=== PATIENT | female | born 1945 | race Caucasian/White ===

== ENCOUNTER 2019-12-13 22:32 | Inpatient (IN) | payer MEDICARE, OTHER ==
[~2019-12-13] VITALS: Ht 165.1 cm; Wt 68.0 kg
--- NOTE | 2019-12-13 22:50 | NUR ---
PT SUZANNE FROM [facility] ON 5150HOLD DTO/GD; REFUSING TO SHOWER, AGGRESSIVE TO STAFF PER REPORT. PT AAOX4, CALM AND COOPERATIVE, RESPIRATIONS EVEN AND UNLABORED ON RA W/ NAD NOTED. PT CHANGED INTO GOWN, BELONGINGS PLACED TO LOCKER. SITTER AT BEDSIDE FOR SAFETY.
--- NOTE | 2019-12-13 23:00 | NUR ---
FLEXOGRAPHIC PRESS OPERATOR AT BEDSIDE FOR BLOOD DRAW
[2019-12-13] MEDS ORDERED: ESCI5TAB PO (23:04)
[2019-12-13] MEDS ORDERED: AMLO5TAB9 PO (23:04)
[2019-12-13] MEDS ORDERED: OLAN10TA3 PO (23:04)
[2019-12-13] MEDS ORDERED: MONT10TA22 PO (23:04)
[2019-12-13] MEDS ORDERED: TRAZ-182 PO (23:04)
[2019-12-13] MEDS ORDERED: CELE200C PO (23:04)
--- NOTE | 2019-12-13 23:06 | NUR ---
COVID SWAB SENT TO LAB
[2019-12-13 23:10] LABS: BASOPHILS % (AUTO) 0.6 % (0.0-2.0); EOSINOPHILS % (AUTO) 3.7 % (0.0-6.0); HEMATOCRIT 32 % (33-45); HEMOGLOBIN 10.8 g/dL (11.5-14.8); LYMPHOCYTES # (AUTO) 0.9 /CMM (0.8-4.8); LYMPHOCYTES % (AUTO) 13.5 % (20.0-44.0); MEAN CORPUSCULAR HGB CONC 34 g/dl (31.0-36.0); MEAN CORPUSCULAR VOLUME 95 fL (82-100); MONOCYTES # (AUTO) 0.7 /CMM (0.1-1.30); MONOCYTES % (AUTO) 10.8 % (2.0-12.0); NEUTROPHILS # (AUTO) 4.8 /CMM (1.8-8.9); NEUTROPHILS % (AUTO) 71.4 % (43.0-81.0); PLATELET COUNT (AUTO) 231 /CMM (150-450); WHITE BLOOD COUNT (AUTO) 6.7 K/uL (4.3-11.0)
[2019-12-13 23:39] LABS: ACETAMINOPHEN 14 ug/ml (10-30); ALANINE AMINOTRANSFERASE 11 U/L (12-78); ALBUMIN 2.5 g/dL (3.4-5.0); ALCOHOL, BLOOD < 3 mg/dL (0-0); ALKALINE PHOSPHATASE 101 U/L (46-116); ASPARTATE AMINOTRANSFERASE 14 U/L (15-37); BILIRUBIN,DIRECT 0.1 mg/dL (0.0-0.2); BILIRUBIN,TOTAL 0.2 mg/dL (0.2-1.0); CALCIUM, SERUM 8.1 mg/dL (8.5-10.1); CARBON DIOXIDE 31 mmol/L (21-32); CHLORIDE 101 mmol/L (98-107); CREATININE 1.1 mg/dL (0.6-1.3); GLUCOSE 101 mg/dL (74-106); POTASSIUM 3.3 mmol/L (3.5-5.1); SALICYLATE 1.1 mg/dL (2.8-20.0); SODIUM SERUM 139 mmol/L (136-145); TOTAL PROTEIN, SERUM 5.7 g/dL (6.4-8.2); UREA NITROGEN, BLOOD 15 mg/dL (7-18)
--- NOTE | 2019-12-14 02:06 | NUR ---
ADMISSION NOTE: RECEIVED PT. FROM ER, ORIGINALLY [facility]. ARRIVED IN THIS UNIT AT 0206 VIA GURNEY WITH 1 ER STAFF. ADMITTED ON A 5150 HOLD FOR DTO, GD. PER HOLD PT. BECAME AGGRESSIVE WITH STAFF, PUSHING THEM TO WALL AND REFUSING TO SHOWER IN MONTHS. THE 5150 WAS REVIEWED AND THE DOCUMENTATION IN THE 5150 HOLD APPEARS TO REFLECT THE PRESENTATION OF PT. UPON FACE TO FACE ASSESSMENT, PT. IS NOTED TO BEING UNCOOPERATIVE, DISHEVELED, POOR HYGIENE. PT. IS CURRENTLY SLEEPING IN BED. NO S/S OF PAIN OR DISTRESS. A/O X2-3 ON RA. NO NEEDS AT THIS TIME. DENIES SI/HI. REFUSED TO SIGN ANY PAPER WORK. ADVISED OF HOLD AND PT. RIGHTS BOOKLET GIVEN. UNDER PSYCHIATRIC CARE OF DR. REYES AND MEDICAL CARE OF ADAN. BELONGINGS WERE INVENTORIED AND CHECKED FOR CONTRABAND. SKIN ASSESSMENT COMPLETED. EDUCATED ON USE OF CALL HOBBS. SIDE RAILS UP X2 FOR SAFETY. LOCKED POSITION, LOW. WILL CONTINUE TO MONITOR FOR SAFETY AND BEHAVIOR.
[2019-12-14] MEDS ORDERED: clonazePAM 0.5 MG TABLET PO SCH (02:30)
[2019-12-14] MEDS ORDERED: MAGNESIUM HYDROXIDE 30 ML UDC PO PRN (02:30)
[2019-12-14] MEDS ORDERED: MAG HYDROX/AL HYDROX/SIMETH 30 ML UDC PO PRN (02:30)
[2019-12-14] MEDS ORDERED: ACETAMINOPHEN 325 MG TABLET PO PRN (02:30)
[2019-12-14] MEDS ORDERED: BLOOD SUGAR DIAGNOSTIC 1 EACH STRIP IN ONE (03:00)
[2019-12-14 03:59] VITALS: BP 134/70
[2019-12-14] MEDS: CELECOXIB 100 MG CAPSULE PO SCH ×2 (08:25→21:17)
[2019-12-14] MEDS: AMLODIPINE BESYLATE 5 MG TABLET PO SCH (08:26)
[2019-12-14 08:37] VITALS: BP 143/81
--- NOTE | 2019-12-14 10:09 | NUR ---
SW Family Contact: This food writer contacted patient's daughter Vicenta ([phone]) to discuss discharge and treatment plan and would want pt back to [facility].
--- NOTE | 2019-12-14 10:09 | NUR ---
SW Initial Discharge Plan: Patient currently resides at [facility] [address] [place] [address]; ([phone]). This lead technical writer contacted Admin León ([phone]) to discuss if pt is welcomed back upon discharge, per León, he will notify this lead technical writer. This lead technical writer contacted patient's daughter Vicenta ([phone]) to discuss discharge and treatment plan and would want pt back to [facility]. This lead technical writer will work with the MD, treatment team, and family to help coordinate proper discharge.
[2019-12-14] MEDS: ESCITALOPRAM OXALATE (10 MG) 10 MG TABLET PO SCH (12:21)
[2019-12-14 16:00] VITALS: BP 125/81
--- NOTE | 2019-12-14 16:18 | NUR ---
gps rn note: patient uncooperative easily agitated refused skin assessment refused to take a shower,refused to collect urine specimen. Dr wick aware no new orders will indorse to po rn
[2019-12-14] MEDS: MONTELUKAST SODIUM (10MG) 10 MG TABLET PO SCH (17:20)
--- NOTE | 2019-12-14 19:30 | NUR ---
RN NOTES: RECEIVED PT IN THE ROOM RESTING IN BED AWAKE ALERT, DISHELVED ,PARANOID,DELUSIONAL , POOR HYGINE, CONFUSED ,BLUNT FLAT AFFECT NO S/S DISTRESS NOTED PT UNCOOPERATIVE REFUSED TO COLLECT URINE SPECIMEN AT THIS TIME AND REFUSED SKIN ASSESSMENT AT THIS TIME, DENIES SI/HI AMBULATORY STEADY GAIT, PT. JUDGEMENT IS IMPARIED AND IMPULSE CONTROL IS POOR PATIENT REFUSED SHOWER ATT HIS TIME ,WILL CONTINUE MONITORING FOR Q 15 MIN SAFETY AND BEHAVIOR.
[2019-12-14 19:54] VITALS: BP 143/77
--- NOTE | 2019-12-14 20:24 | NUR ---
RN NOTES: REFUSES SKIN ASSESSMENT PT. REFUSED A THOROUGHLY FULL BODY SKIN ASSESSMENT , PER PT. I DONT NEED TO CHECK MY SKIN , ENCOURAGED X3 RISKS JIE EXPLINED ,PT. STRONGLY REFUSED , PT. BEHAVIOR VERY UNCCOERTIVE , PARANOID, EASILY AGITATED , WILL CONTINUITY WITH CARE .
[2019-12-14] MEDS ORDERED: OLANZAPINE 10 MG TABLET PO SCH (22:00)
--- NOTE | 2019-12-14 22:00 | NUR ---
RN NOTES: VIRGINIA ARELLANO JIG FILLER IN THE UNIT , MADE AWARE OF PATIENT RIGHT /LEFT BREAST SKIN PROBLEMS, AND VIRGINIA ARELLANO ORDES WOUND CONSULTS, AND PER HER STATES FOLLOW UP WITH DAY TIME / MORNING MD. WILL CONTINUITY WITH CARE.
[2019-12-14] MEDS: TRAZODONE 50 MG TABLET PO SCH (22:06)
--- NOTE | 2019-12-15 05:18 | NUR ---
RN NOTES: REFUSES SKIN ASSESSMENT PT. REFUSED A THOROUGHLY FULL BODY SKIN ASSESSMENT AND REFUSED TO TAKE SHOWER AND REFUSED TO TAKE OFF DIRTY UNDERGARMENTS , ENCOURAGED X3 RISKS JIE EXPLINED ,PT. STRONGLY REFUSED , PT. BEHAVIOR VERY UNCOOPERATIVE , PARANOID, EASILY AGITATED , WILL CONTINUITY WITH CARE .
--- NOTE | 2019-12-15 05:28 | NUR ---
RN NOTES: REFUSED URINE SPECIMEN PT. REFUSED TO GIVE URINE SPECIMEN , PT. STATES I GIVE URINE SPECIMEN WHEN I CAME ENCOURAGED X3 RISKS JIE EXPLINED ,PT. STRONGLY REFUSED , PT. BEHAVIOR VERY UNCOOPERATIVE , PARANOID, EASILY AGITATED , WILL CONTINUITY WITH CARE .
[2019-12-15 07:02] LABS: CALCIUM, SERUM 8.5 mg/dL (8.5-10.1); CREATININE 0.9 mg/dL (0.6-1.3); POTASSIUM 3.8 mmol/L (3.5-5.1)
[2019-12-15 07:12] LABS: CHOLESTEROL 218 mg/dL (<200); HDL CHOLESTEROL 69 mg/dL (40-60); LDL 131 mg/dL (0-99); TRIGLYCERIDES 101 mg/dL (30-150)
[2019-12-15 08:00] VITALS: BP 143/80
[2019-12-15] MEDS: AMLODIPINE BESYLATE 5 MG TABLET PO SCH (08:00)
[2019-12-15] MEDS: ESCITALOPRAM OXALATE (10 MG) 10 MG TABLET PO SCH (08:00)
[2019-12-15] MEDS: CELECOXIB 100 MG CAPSULE PO SCH ×2 (08:00→20:10)
--- NOTE | 2019-12-15 09:46 | NUR ---
WOUND CARE CONSULT: LIMITED ASSESSMENT DUE TO PT ONLY ALLOWED ASSESSMENT OF BREAST AREA. RT BREASTFOLD NOTED TO HAVE OPEN SKIN AND SEVERE RASH. RASH EXTENDS TO LEFT BREAST WELL. RECOMMEND SURGICAL CONSULT. DR ARANGO NOTIFIED OF CONSULT REQUEST. CURRENT SALVATORE SCORE IS 21. Addendum: 12/15/19 at 0948 by DANTE KEARNEY WNDNU Amended: Links added.
--- NOTE | 2019-12-15 10:11 | NUR ---
SW Family Contact: This ticket writer contacted patient's daughter Vicenta ([phone]) and she reported that pt was residing with her for 15 years and then she was transferred to [facility]. Per daughter Vicenta, pt has been neglecting her a self-care at home and was refusing to shower. Vicenta reported pt was also refusing self-care at [facility] and this was one of the main concerns why she was brought to the hospital.
[2019-12-15] MEDS: CLOTRIMAZOLE 1% 15 GM TUBE TP SCH ×2 (13:40→17:00)
[2019-12-15 16:00] VITALS: BP 141/71
[2019-12-15] MEDS: MONTELUKAST SODIUM (10MG) 10 MG TABLET PO SCH (18:06)
[2019-12-15 20:31] VITALS: BP 138/82
--- NOTE | 2019-12-15 20:48 | NUR ---
RN NOTES: REFUSED URINE SPECIMEN PT. REFUSED TO PROVIDE URINE SPECIMEN , PT. STATES I GIVE URINE SPECIMEN WHEN I CAME HERE NOW I AM NOT GIVE ANY MORE URINE SPECIMEN , ENCOURAGED X3 RISKS JIE EXPLINED ,PT. STRONGLY REFUSED , PT. BEHAVIOR VERY UNCOOPERATIVE , PARANOID, EASILY AGITATED , WILL CONTINUITY WITH CARE.
--- NOTE | 2019-12-15 20:50 | NUR ---
RN NOTES : REFUSED HYGINE OFFERD PT. TO SHOWER AND BED BATH ,PER PT. I AM CLEANING MY SELF ,ENCOURAGED AND MOTIVATED FOR SHOWER AND BED BATH , PT. REFUSED TO DCS ENGINEER , PER PT. I TOLD YOU ALREADY , I NO NEED , WILL CONTINUITY WITH CARE.
[2019-12-15] MEDS: OLANZAPINE 10 MG TABLET PO SCH (21:08)
[2019-12-15] MEDS: TRAZODONE 50 MG TABLET PO SCH (21:08)
--- NOTE | 2019-12-15 22:25 | NUR ---
RN NOTES : RECEVEID PHONE CALL FROM [facility], ABOUT PT. RESULTS MRSA NARES POSITIVE , PLACED CALL [facility], AND NOTIFIED MARKETING SERVICES VICE PRESIDENT VIRGINIA BLEVINS ON MY FINDING , NEW ODADRIANO RECIVED FOR BACTROBAN OINTMENT 2% 1 GM NS Q 12HR, AND PT. KEEP IN ISOLATION, NEW NUBIA RECEIVED AN CARRIED OUT.WILL CONTINUITY WITH CARE.
--- NOTE | 2019-12-16 06:20 | NUR ---
RN NOTES : PT.WAS MED COMPLIANT , BUT PT.REFUSED SHOWER / BED BATH ,POOR HYGINE , REFUSED TO GIVE URINE SPECIMEN , REFUSED SKIN REASSESSMENT, ENCOURAGED RISKS BENFITS EXPLINED STRONGLY REFUSED, AND PT. BEHAVIOR EASILY AGIATED UNCOOPERTIVE ,DISHELVED NO ACUTE DISTRESS NOTED, NO CHANGE OF CONDTION NOTED, WILL CONTINUITY WITH CARE.
[2019-12-16 08:00] VITALS: BP 148/78
[2019-12-16] MEDS: ESCITALOPRAM OXALATE (10 MG) 10 MG TABLET PO SCH (08:05)
[2019-12-16] MEDS: AMLODIPINE BESYLATE 5 MG TABLET PO SCH (08:06)
[2019-12-16] MEDS: CLOTRIMAZOLE 1% 15 GM TUBE TP SCH ×2 (08:06→16:17)
[2019-12-16] MEDS: CELECOXIB 100 MG CAPSULE PO SCH ×2 (08:06→21:46)
[2019-12-16] MEDS: MUPIROCIN OINT 2% 22 GM TUBE NS SCH ×2 (08:51→21:45)
--- NOTE | 2019-12-16 13:49 | NUR ---
GPS RN NOTE: WOUND CARE DONE PER ORDER PT TOLERATED WILL CONTINUE TO REFUSED TO TAKE A SHOWER/ BED BATH EXPLAIN IMPORTANCE OF HYGIENE PATIENT CONTINUE TO STRONGLY TO REFUSED. REFUSED TO GIVE URINE SPECIMEN PT EASILY AGITATED UNCOOPERATIVE , DISHEVELED , WILL CONTINUITY WITH CARE.
[2019-12-16 16:00] VITALS: BP 149/85
[2019-12-16] MEDS: MONTELUKAST SODIUM (10MG) 10 MG TABLET PO SCH (17:15)
[2019-12-16 19:46] VITALS: BP 120/72
[2019-12-16] MEDS: TRAZODONE 50 MG TABLET PO SCH (21:46)
[2019-12-16] MEDS: OLANZAPINE 10 MG TABLET PO SCH (21:47)
[2019-12-16] MEDS: TEMAZEPAM 7.5 MG CAPSULE PO PRN (22:07)
--- NOTE | 2019-12-16 22:37 | NUR ---
GPS RN NOTE: PT REQUESTED FOR SLEEP MEDICATION D/T INSOMNIA, RESTORIL 7.5MG 1 CAP GIVEN PO PRN ORDERED AT 2207. WILL CONTINUE TO MONITOR.
[2019-12-17 08:00] VITALS: BP 127/74
[2019-12-17] MEDS: CLOTRIMAZOLE 1% 15 GM TUBE TP SCH ×2 (08:01→16:49)
[2019-12-17] MEDS: ESCITALOPRAM OXALATE (10 MG) 10 MG TABLET PO SCH (08:01)
[2019-12-17] MEDS: MUPIROCIN OINT 2% 22 GM TUBE NS SCH ×2 (08:01→20:58)
[2019-12-17] MEDS: CELECOXIB 100 MG CAPSULE PO SCH ×2 (08:01→20:54)
[2019-12-17] MEDS: AMLODIPINE BESYLATE 5 MG TABLET PO SCH (08:02)
--- NOTE | 2019-12-17 11:00 | NUR ---
RN NOTES RECEIVED HAND OFF REPORT FOR MIN
[2019-12-17 16:00] VITALS: BP 162/94
[2019-12-17] MEDS: MONTELUKAST SODIUM (10MG) 10 MG TABLET PO SCH (17:43)
--- NOTE | 2019-12-17 19:05 | NUR ---
RN NOTES: RECEIVED PATIENT IN THE BATHROOM.
--- NOTE | 2019-12-17 19:42 | NUR ---
PATIENT IS IN BED,RESTING, NO S/S OF DISTRESS NOTED. NO COMPLAIN OF PAIN.
[2019-12-17 20:00] VITALS: BP 142/72
[2019-12-17] MEDS: TRAZODONE 50 MG TABLET PO SCH (20:53)
[2019-12-17] MEDS: OLANZAPINE 10 MG TABLET PO SCH (20:53)
[2019-12-17] MEDS: TEMAZEPAM 7.5 MG CAPSULE PO PRN (21:06)
--- NOTE | 2019-12-18 05:12 | NUR ---
WOUND TREATMENTS DONE: ON THE RIGHT BREAST FOLD-LATERAL SIDE LACERATION- CLEANSED WITH NS, PAT DRIED.AND SMALL PIECE OF XEROFORM DRESSING APPLIED. ON THE OTHER SIDE OF THE RIGHT BREAST FOLD,CLEANSED WITH NS, PAT DRIED AND LOTRIMIN CREAM APPLIED. ON THE LEFT BREAST FOLD REDNESS- CLEANSED WITH NS, PAT DRIED, AND LOTRIMIN CREAM APPLIED.
[2019-12-18 08:00] VITALS: BP 152/86
[2019-12-18] MEDS: CELECOXIB 100 MG CAPSULE PO SCH ×2 (08:28→21:13)
[2019-12-18] MEDS: AMLODIPINE BESYLATE 5 MG TABLET PO SCH (08:28)
[2019-12-18] MEDS: ESCITALOPRAM OXALATE (10 MG) 10 MG TABLET PO SCH (08:28)
[2019-12-18] MEDS: MUPIROCIN OINT 2% 22 GM TUBE NS SCH ×2 (08:33→21:12)
[2019-12-18] MEDS: CLOTRIMAZOLE 1% 15 GM TUBE TP SCH ×2 (08:33→17:04)
--- NOTE | 2019-12-18 12:40 | NUR ---
gps counseling aide: notes report given to lindsay (mary) for continuity of care.
--- NOTE | 2019-12-18 12:45 | NUR ---
RN NOTES RECEIVED REPORT FROM ANAHI. WILL CONTINUE TO MONITOR PATIENT AT THIS TIME.
[2019-12-18 16:00] VITALS: BP 112/63
[2019-12-18] MEDS: MONTELUKAST SODIUM (10MG) 10 MG TABLET PO SCH (17:04)
[2019-12-18 20:04] VITALS: BP 98/57
[2019-12-18] MEDS: TRAZODONE 50 MG TABLET PO SCH (22:15)
[2019-12-18] MEDS: OLANZAPINE 10 MG TABLET PO SCH (22:15)
[2019-12-18 22:30] VITALS: BP 112/68
--- NOTE | 2019-12-19 06:13 | NUR ---
WOUND CARE CONSULT WOUND CARE RECEIVED CNSULT TO RE-EVALUATE THE RIGHT BREAST FOLD LATERAL SIDE WOUND. WOUND CARE WILL DEFER TO SURGICAL TEAM WHO ARE CURRENTLY FOLLOWING THIS PATIENT. PATIENT WAS RE-EVALUATED BY SILVIA ORTIZ 12/18/19 AND PLACED CURRENT TREATMENT ORDERS. WOUND CARE WILL SEE PRN.
--- NOTE | 2019-12-19 06:47 | NUR ---
GPS RN NOTES: PT. RESTING IN HER ROOM, CALM NOTED AT THIS TIME . NO S/S OF DISTRESS NOTED . NO CHANGE OF CONDITION NOTED, ALL CARE NEEDS MET ANTICIPATED. WILL CONTINUE TO MONITOR FOR SAFETY BEHAVIOR, AND ENDORSE TO AM SHIFT FOR CONTINUITY OF CARE.
[2019-12-19 08:00] VITALS: BP 156/89
[2019-12-19] MEDS: CELECOXIB 100 MG CAPSULE PO SCH ×2 (08:28→20:20)
[2019-12-19] MEDS: MUPIROCIN OINT 2% 22 GM TUBE NS SCH ×2 (08:28→20:19)
[2019-12-19] MEDS: AMLODIPINE BESYLATE 5 MG TABLET PO SCH (08:29)
[2019-12-19] MEDS: ESCITALOPRAM OXALATE (10 MG) 10 MG TABLET PO SCH (08:31)
[2019-12-19] MEDS: CLOTRIMAZOLE 1% 15 GM TUBE TP SCH ×2 (08:45→16:09)
[2019-12-19 16:00] VITALS: BP 148/74
[2019-12-19] MEDS: MONTELUKAST SODIUM (10MG) 10 MG TABLET PO SCH (17:21)
[2019-12-19] MEDS: OLANZAPINE 10 MG TABLET PO SCH (22:08)
[2019-12-19] MEDS: TRAZODONE 50 MG TABLET PO SCH (22:10)
[2019-12-20 08:00] VITALS: BP 161/81
[2019-12-20] MEDS: CLOTRIMAZOLE 1% 15 GM TUBE TP SCH ×2 (08:56→17:08)
[2019-12-20] MEDS: ESCITALOPRAM OXALATE (10 MG) 10 MG TABLET PO SCH (08:56)
[2019-12-20] MEDS: CELECOXIB 100 MG CAPSULE PO SCH ×2 (08:56→20:23)
[2019-12-20] MEDS: AMLODIPINE BESYLATE 5 MG TABLET PO SCH (08:56)
[2019-12-20] MEDS: MUPIROCIN OINT 2% 22 GM TUBE NS SCH ×2 (08:56→20:25)
--- NOTE | 2019-12-20 10:38 | NUR ---
SNF Contact: called Intern León ([phone]) at [facility] to inform him of the pts discharge for either or Wednesday and he stated that he will have the chief meter reader of business, Shelley, reach out to the SW.
--- NOTE | 2019-12-20 10:46 | NUR ---
Family Contact: SW contacted patient's daughter Vicenta ([phone]) and informed her that the pt is going to be discharged either tomorrow or Wednesday. Pts daughter asked if we were sure that we were not going to keep her for a few more days and the SW stated that the MD feels that the pt has shown improvement and that she can be discharged. SW stated that she will keep her updated.
--- NOTE | 2019-12-20 14:41 | NUR ---
SNF Contact: SW called Human Intelligence León ([phone]) at [facility] who stated that he will reach out to the tipple tender once again so that she can speak to the SW about the pt returning to the facility.
--- NOTE | 2019-12-20 14:52 | NUR ---
SNF Contact: BRIANNE called Shelley ([phone]), [employer], and she stated that they cannot take the pt back because she was aggressive and her needs cannot be met at the facility. She stated that the pt should be referred to Dillon at [facility].
--- NOTE | 2019-12-20 14:53 | NUR ---
Family Contact: SW contacted patient's daughter Vicenta ([phone]) and informed her that the pt cannot return to [facility] and that the SW has to find an alternative placement for her. Pts daughter asked that the SW try [facility] as well as the facilities associated with [facility].
--- NOTE | 2019-12-20 15:12 | NUR ---
SNF Referral: SW faxed referrals to the following two facilities listed below: [facility] with attn to Dillon: [phone] [facility] with attn to Heydi: [phone]
--- NOTE | 2019-12-20 15:28 | NUR ---
SNF Referral: SW faxed a referral to the following two facilities: [facility] with attn to Dillon: [phone] [facility] with attn to Heydi: [phone]
[2019-12-20 16:00] VITALS: BP 138/78
[2019-12-20] MEDS: MONTELUKAST SODIUM (10MG) 10 MG TABLET PO SCH (17:08)
[2019-12-20 20:19] VITALS: BP 117/69
[2019-12-20] MEDS: TRAZODONE 50 MG TABLET PO SCH (21:09)
[2019-12-20] MEDS: OLANZAPINE 10 MG TABLET PO SCH (21:10)
--- NOTE | 2019-12-21 06:28 | NUR ---
GPS RN NOTES: PT. RESTING IN HER ROOM, CALM NOTED AT THIS TIME . NO S/S OF DISTRESS NOTED ,NO CHANGE OF CONDITION NOTED ,AND NO BEHAVIOR PROBLEMS NOTED, ALL CARE NEEDS MET ANTICIPATED. WILL CONTINUE TO MONITOR FOR SAFETY BEHAVIOR, AND ENDORSE TO AM SHIFT FOR CONTINUITY OF CARE.
--- NOTE | 2019-12-21 07:38 | NUR ---
GPS RN NOTE RECEIVED PATIENT IN BED RESTING COMFORTABLY. PATIENT IN NO ACUTE DISTRESS. NO SOB NOTED. PATIENT BREATHING IS EVEN AND UNLABORED. PATIENT IS CALM AND COOPERATIVE AT THIS TIME. PATIENT BED IS LOCKED AND IN LOWEST POSITION. BED ALARM IS ON. WILL CONTINUE TO MONITOR.
[2019-12-21 08:11] VITALS: BP 153/82
[2019-12-21] MEDS: CELECOXIB 100 MG CAPSULE PO SCH ×2 (08:44→21:29)
[2019-12-21] MEDS: ESCITALOPRAM OXALATE (10 MG) 10 MG TABLET PO SCH (08:44)
[2019-12-21] MEDS: AMLODIPINE BESYLATE 5 MG TABLET PO SCH (08:44)
[2019-12-21] MEDS: MUPIROCIN OINT 2% 22 GM TUBE NS SCH (08:46)
[2019-12-21] MEDS: CLOTRIMAZOLE 1% 15 GM TUBE TP SCH ×2 (08:46→17:00)
--- NOTE | 2019-12-21 09:30 | NUR ---
SNF Contact: BRIANNE called Shelley ([phone]), [employer], and left a voicemail stating that the SW wants to speak to her about the pts discharge. BRIANNE is planning on discussing the 7 day bed hold and will mention that the facility used up all of the pts SNF days and therefore cannot dump the pt.
--- NOTE | 2019-12-21 10:35 | NUR ---
SNF Contact: BRIANNE called Pool Nurse León ([phone]) at [facility] and had to leave a voicemail as he was currently occupied.
--- NOTE | 2019-12-21 11:24 | NUR ---
SNF Contact: BRIANNE called Shelley ([phone]), [employer], and she stated that she is going to speak to the DON because they understand that they cannot dump patients at the hospital. BRIANNE stated that the other facilities are running into a problem with the pts Medicare because there is an open workers comp case. Shelley stated that she will speak to the SW soon.
--- NOTE | 2019-12-21 14:41 | NUR ---
SNF Contact: BRIANNE [email or web address] with attention to Shelley to the fax number: [phone].
--- NOTE | 2019-12-21 15:00 | NUR ---
Family Contact: SW contacted patient's daughter Vicenta ([phone]) and informed her that the pt will be allowed to return to her previous facility. Pts daughter accepted the placement.
[2019-12-21 16:00] VITALS: BP 117/67
[2019-12-21] MEDS: MONTELUKAST SODIUM (10MG) 10 MG TABLET PO SCH (17:00)
--- NOTE | 2019-12-21 17:00 | NUR ---
GPS RN NOTE PATIENT AGREED AND ALLOWED ME TO PERFORM WOUND CARE ORDERED AT THIS TIME.
--- NOTE | 2019-12-21 18:38 | NUR ---
GPS RN NOTE PATIENT IN BED RESTING COMFORTABLY. PATIENT IN NO ACUTE DISTRESS. NO SOB NOTED. PATIENT BREATHING IS EVEN AND UNLABORED. PATIENT IS CALM AND COOPERATIVE AT THIS TIME. SAFETY PRECAUTIONS IN PLACE. EXPLAINED ALL DUE MEDS. PATIENT KEPT CLEAN, DRY, AND COMFORTABLE THROUGHOUT SHIFT. PATIENT BED IS LOCKED AND IN LOWEST POSITION. BED ALARM IS ON. WILL ENDORSE CARE TO PM SHIFT FOR MIN.
--- NOTE | 2019-12-21 19:30 | NUR ---
GPS RN NOTE, RECEIVED PATIENT AWAKE AND IN BED, NO S/S OR COMPLAINTS OF PAIN AT THIS TIME. PATIENT IS DISPLAYING NO S/S OF APPARENT DISTRESS AT THIS TIME. PATIENT BREATHING IS UNLABORED WITH EQUAL RISE AND FALL OF THE CHEST. PATIENT IS ALERT AND ORIENTED X 2 -3 ON ROOM AIR WITH A SPO2 99%. PATIENT IS COMPLAINT WITH MEDICATIONS, CONFUSED AT TIMES, BLUNTED AFFECT, AND COOPERATIVE. PATIENT DENIES SUICIDAL AND HOMICIDAL IDEATIONS AT THIS TIME. PATIENT ASSISTED WITH TURNING AND REPOSITIONING Q2HR AND PRN FOR COMFORT AND CIRCULATION. PATIENT HAS NO NEEDS AT THIS TIME. PATIENT EDUCATED ON THE USE OF THE CALL HOBBS. PATIENT BED SIDE RAILS UP X 2 FOR SAFETY. PATIENT BED IS LOCKED, LOW, WITH BED ALARM ON. WILL CONTINUE TO MONITOR THIS PATIENT Q15 MINUTES WITH THE HELP OF STAFF TO MAINTAIN SAFETY.
[2019-12-21 20:12] VITALS: BP 98/55
[2019-12-21] MEDS: OLANZAPINE 10 MG TABLET PO SCH (21:30)
[2019-12-21] MEDS: TRAZODONE 50 MG TABLET PO SCH (21:30)
[2019-12-22 08:00] VITALS: BP 149/85
[2019-12-22] MEDS: ESCITALOPRAM OXALATE (10 MG) 10 MG TABLET PO SCH (08:28)
[2019-12-22] MEDS: CELECOXIB 100 MG CAPSULE PO SCH (08:28)
[2019-12-22 08:29] VITALS: BP 149/85
[2019-12-22] MEDS: AMLODIPINE BESYLATE 5 MG TABLET PO SCH (08:29)
--- NOTE | 2019-12-22 08:45 | NUR ---
Dr. Leonardo gave an order to D/C hold and D/C to [address], to continue same meds including prn and to follow up with psych and medical doctors
[2019-12-22] MEDS: CLOTRIMAZOLE 1% 15 GM TUBE TP SCH (09:24)
--- NOTE | 2019-12-22 10:31 | NUR ---
Discharge Note: Pt was discharged to [address] located at [address], [place] [address]; . Pt was transported via [facility] at 2pm. Pt was placed in Rm 18B. Pts daughter, Vicenta ([phone]), was made aware of the discharge. Upon discharge, the pt appeared to be in a euthymic mood and presented with a calm affect. Pt denied both suicidal and homicidal ideation as well as auditory and visual hallucinations. Pt appeared to be alert and oriented x4 (time, place, self, and situation). Pt appeared to be ambulatory with an unsteady gait. Pt appeared to be well groomed and appropriately dressed. Pt will be under the care of her psychiatrist, Dr. Leonardo, located at [address] [facility], [address] [place] [address]; and her pallet stone positioner, Dr. Kameron Ham, located at [address] [facility], [place] [address]; . The multidisciplinary exit care form was done, printed, signed, and given to the patient.
--- NOTE | 2019-12-22 10:42 | NUR ---
Gab Valentin made aware of the discharge and to continue same meds including prn.
--- NOTE | 2019-12-22 14:35 | NUR ---
GPS/RN PT LEFT VIA AMBULANCE. NO SI OR HI REPORTED AT THE TIME OF DISCHARGE.VSS. PT IS AMBULATORY NO C/O PAIN REPORTED.PROPERTY AND VALUABLES FROM THE SAFE RETURNED. REPORT GIVEN TO KYLE BETHEA AT THE FACILITY. PRESCRIPTIONS AND EXIT CARE INSTRUCTIONS GIVEN.
== END 2019-12-22 14:35 | DRG 885 ==
LOC: ER 22:40 → GPS 12-14 00:25
PROVIDERS: ADMIT Psychiatry & Neurology Psychiatry; ATTEND Nurse Practitioner Acute Care
DX: F25.9 Schizoaffective disorder, unspecified (principal); F01.50 Vascular dementia, unspecified severity, without behavioral disturbance, psychotic disturbance, mood disturbance, and anxiety; E44.0 Moderate protein-calorie malnutrition; I10 Essential (primary) hypertension; J45.909 Unspecified asthma, uncomplicated; E87.6 Hypokalemia; F41.9 Anxiety disorder, unspecified; Z79.899 Other long term (current) drug therapy; Z91.018 Allergy to other foods; Z91.013 Allergy to seafood; F29 Unspecified psychosis not due to a substance or known physiological condition; Z73.6 Limitation of activities due to disability; L30.4 Erythema intertrigo; G47.00 Insomnia, unspecified; F32.9 Major depressive disorder, single episode, unspecified
CPT/HCPCS: 36415; 80048-TC; 80061-TC; 80076-TC; 82962-TC; 85025-TC; 87081-TC; C9803-CS; G0480